=== PATIENT | male | born 1980 | race Caucasian/White ===

== ENCOUNTER 2016-04-26 12:13 | Emergency (ER) | payer OTHER ==
[~2016-04-26] VITALS: Ht 172.7 cm; Wt 104.3 kg
[~2016-04-26 12:13] MED LIST: PERCOCET 325 MG1 TA2 PO
--- NOTE | 2016-04-26 12:58 | ED GENERAL ADULT ---
History of Present Illness General Chief Complaint: Abdominal Pain/Flank Pain Stated Complaint: ?CONSTIPATION Source: patient Exam Limitations: no limitations Vital Signs & Intake/Output Vital Signs & Intake/Output Vital Signs Date Time Temp Pulse Resp B/P Pulse O2 O2 Flow FiO2 Ox Delivery Rate 04/26 1448 101.2 80 20 156/73 95 Room Air 04/26 1215 96.6 104 20 134/96 100 Room Air Allergies Coded Allergies: NO KNOWN ALLERGIES (08/14/13) Reconcile Medications Ondansetron (Zofran Odt) 4 MG TAB.RAPDIS 1 TAB SL TID nausea Triage Note: PT TO ED C/O URI S/S SINCE TUESDAY. ALSO C/O NOT BEING ABLE TO KEEP LIQUIDS DOWN, VOMITS AFTER DRINKING. AFEBRILE. STATES UNABLE TO URINATE SINCE TUESDAY. Triage Nurses Notes Reviewed? yes Onset: Abrupt Duration: day(s): (4), constant, continues in ED Timing: recent history Injury Environment: home Severity: moderate, severe No Modifying Factors: none HPI: 35-year-old male comes into emergency room for further evaluation of multiple complaints. Patient reports that he has been sick for the past 4 days. She has had a runny nose congestion coughing body aches sore throat. Patient reports that he is also had decrease in bowel movements as well as vomiting and has not been able to keep any liquids down. Diffuse body aches and fevers and chills. Nothing seems to make the symptoms better or worse. Denies any other associated symptoms at this time. Patient comes into the emergency room for further evaluation due to persistent symptoms. (ALESSIO TROY) Past History Travel History Traveled to [place] past 21 day No Medical History Any Pertinent Medical History? none History of MRSA: No History of VRE: No History of CDIFF: No Pneumonia Vaccine: 09/27/13 Surgical History Surgical History: non-contributory Psychosocial History Who do you live with Sister Services at Home None What is your primary language Serbian Tobacco Use: Current Daily Use Daily Tobacco Use Amount/Type: => 5 Cigarettes daily ETOH Use: denies use Illicit Drug Use: denies illicit drug use Family History Family History, If Any: MOTHER FH: diabetes mellitus Hx Contributory? No (ALESSIO TROY) Review of Systems Review of Systems Constitutional: Reports: see HPI. EENTM: Reports: see HPI. Respiratory: Reports: see HPI. Cardiovascular: Reports: no symptoms. GI: Reports: no symptoms. Genitourinary: Reports: no symptoms. Musculoskeletal: Reports: no symptoms. Skin: Reports: no symptoms. Neurological/Psychological: Reports: no symptoms. Hematologic/Endocrine: Reports: no symptoms. Immunologic/Allergic: Reports: no symptoms. All Other Systems: Reviewed and Negative (ALESSIO TROY) Physical Exam Physical Exam General Appearance: well developed/nourished, no apparent distress, alert, awake Head: atraumatic, normal appearance Eyes: Bilateral: normal appearance, EOMI. Ears, Nose, Throat: normal pharynx, normal ENT inspection Neck: normal inspection, full range of motion Respiratory: normal breath sounds, no respiratory distress Cardiovascular: regular rate/rhythm Gastrointestinal: soft, non-tender Back: normal inspection Extremities: normal inspection, normal range of motion Neurologic/Psych: awake, alert, oriented x 3, normal gait, normal mood/affect Skin: intact, normal color Core Measures ACS in differential dx? No CVA/TIA Diagnosis: No Severe Sepsis Present: No Septic Shock Present: No (ALESSIO TROY) Progress Differential Diagnoses I considered the following diagnoses in my evaluation of the patient: Influenza , gastroenteritis, sinusitis, strep throat, sepsis, bronchitis, pneumonia, Plan of Care: Orders Procedure Date/time Status THROAT CULTURE W/QUICK STREP 04/26 1327 Active RAPID VIRAL INFLUENZA A 04/26 1256 Complete LIPASE 04/26 1256 Complete COMPREHENSIVE METABOLIC PANEL 04/26 1256 Complete CBC WITHOUT DIFFERENTIAL 04/26 1256 Complete AMYLASE 04/26 1256 Complete VIRAL CULTURE 04/26 1220 Active Laboratory Tests 04/26/16 1330: Anion Gap 14, Estimated GFR > 60, BUN/Creatinine Ratio 15.8, Glucose 115 H, Calcium 9.7, Total Bilirubin 1.0, AST 58, ALT 94 H, Alkaline Phosphatase 62, Total Protein 8.5 H, Albumin 5.1 H, Globulin 3.4, Albumin/Globulin Ratio 1.5, Amylase 42, Lipase 62, CBC w Diff NO MAN DIFF REQ, RBC 5.31, MCV 87.1, MCH 30.4, RDW 12.4, MPV 8.5, Gran % 82.9 H, Lymphocytes % 8.6 L, Monocytes % 8.0, Eosinophils % 0.1, Basophils % 0.4, Absolute Granulocytes 7.8 H, Absolute Lymphocytes 0.8 L, Absolute Monocytes 0.7 H, Absolute Eosinophils 0, Absolute Basophils 0, PUBS MCHC 34.9 04/26/16 1257: Urine Color Cancelled, Urine Clarity Cancelled, Urine pH Cancelled, Ur Specific [place] Cancelled, Urine Protein Cancelled, Urine Ketones Cancelled, Urine Nitrite Cancelled, Urine Bilirubin Cancelled, Urine Urobilinogen Cancelled, Ur Leukocyte Esterase Cancelled, Ur Microscopic Cancelled, Urine Hemoglobin Cancelled, Urine Glucose Cancelled 04/26/16 1220: Virus Culture Pending Microbiology 04/26 1320 NASOPHARYN: Influenza Virus A & B Rapid Smear - COMP INFLUENZA TYPE B Diagnostic Imaging: Viewed by Me: Radiology Read. Discussed w/RAD: Radiology Read. Radiology Impression: EXAM TYPE: RAD - [id number] VIEWS EXAMINATION: XR ABDOMEN MULTIPLE VIEWS CLINICAL INDICATION: Constipation COMPARISON: None TECHNIQUE: AP upright and supine radiographs of the abdomen and pelvis FINDINGS: No bowel dilatation to suggest obstruction. No free intraperitoneal air. IMPRESSION: Unremarkable bowel gas pattern. Initial ED EKG: none (ALESSIO TROY) Departure Departure Disposition: HOME OR SELF CARE Condition: Stable Clinical Impression Primary Impression: Influenza B Referrals: PATIENT HAS NO PRIMARY CARE DR (PCP/Family) Additional Instructions: Rest. Drink plenty of fluids. Motrin Tylenol at home. Take Zofran ODT as prescribed. Return if any other concerns worsening symptoms. Please go over all results of today's visit with your primary care doctor. Contact your primary care doctor to let them know you were here in the emergency room. There may be nonspecific findings which may not be related to your visit today here in the emergency room but may require further evaluation and chronic monitoring by your primary care doctor. If you had a laceration today the chance of foreign body always remains. You should follow-up with your primary care doctor for recheck in 3-5 days for a wound check. If you had an x-ray done there is a chance that a fracture could have been missed on initial read and you should follow-up with your primary care doctor for repeat x-rays if symptoms persist. If your blood pressure was elevated here in the emergency room please have rechecked by her primary care doctor within the next 48 hours by your primary care doctor. If you were prescribed a narcotic here in the emergency room or any type of controlled substances you're not allowed to drive while taking this medication or operate any type of heavy machinery. Narcotics can make you feel lightheaded dizziness nausea and can cause constipation. You may need to grain picker a stool softener. Thank you for choosing [facility] emergency room. Please return to the emergency room immediately if you have any other concerns worsening of symptoms. Departure Forms: Customer Survey General Discharge Information Prescriptions: Current Visit Scripts Ondansetron (Zofran Odt) 1 TAB SL TID #10 TAB Comments 04/26/2016 2:51:01 PM Patient clinically looks well. Feels much better after IV medications. Positive flu swab. Return if any concerns worsening symptoms. too late to start on Tamiflu. (ALESSIO TROY) PA/CIRCUS SUPERVISOR Co-Sign Statement Statement: ED Attending supervision documentation- [] I saw and evaluated the patient. I have also reviewed all the pertinent lab results and diagnostic results. I agree with the findings and the plan of care as documented in the PA's/CIRCUS SUPERVISOR's documentation. [x] I have reviewed the ED Record and agree with the PA's/CIRCUS SUPERVISOR's documentation. [] Additions or exceptions (if any) to the PAs/CIRCUS SUPERVISOR's note and plan are summarized below: [] (BRUNO SANCHEZ DO) Critical Care Note Critical Care Note Critical Care Time: non-applicable (ALESSIO TROY)
[2016-04-26 13:40] LABS: ABSOLUTE BASOPHIL COUNT 0 /CUMM (0.0-0.2); ABSOLUTE EOSINOPHIL COUNT 0 /CUMM (0.0-0.7); ABSOLUTE GRANULOCYTE CT 7.8 /CUMM (1.4-6.5); ABSOLUTE LYMPH COUNT 0.8 /CUMM (1.2-3.4); ABSOLUTE MONOCYTE COUNT 0.7 /CUMM (0.10-0.60); BASOPHIL % 0.4 % (0.0-2.0); EOSINOPHIL % 0.1 % (0-5); GRANULOCYTE % 82.9 % (42.2-75.2); HEMATOCRIT 46.2 % (42-52); MEAN CORPUSCULAR HGB 30.4 PG (27.0-31.0); MEAN CORPUSCULAR HGB CONC 34.9 G/DL (33.0-37.0); MEAN CORPUSCULAR VOLUME 87.1 FL (80.0-94.0); MEAN PLATELET VOLUME 8.5 FL (7.4-10.4); PLATELET COUNT 206 /CUMM (130-400); RBC DISTRIBUTION WIDTH 12.4 % (11.5-14.5); RED BLOOD CELL CT 5.31 /CUMM (4.70-6.10); WHITE BLOOD CELL COUNT 9.4 /CUMM (4.8-10.8)
--- NOTE | 2016-04-26 13:51 | RADIOLOGY REPORT ---
EXAMINATION: XR ABDOMEN MULTIPLE VIEWS CLINICAL INDICATION: Constipation COMPARISON: None TECHNIQUE: AP upright and supine radiographs of the abdomen and pelvis FINDINGS: No bowel dilatation to suggest obstruction. No free intraperitoneal air. IMPRESSION: Unremarkable bowel gas pattern.
[2016-04-26] MEDS ORDERED: ZOFRAN ODT4 M1 SL (14:18)
[2016-04-26 14:48] VITALS: BP 156/73
== END 2016-04-26 14:57 ==
LOC: ERH 12:13
PROVIDERS: Physician Assistant Medical
DX: J10.1 Influenza due to other identified influenza virus with other respiratory manifestations (principal); F17.210 Nicotine dependence, cigarettes, uncomplicated
CPT/HCPCS: 74020; 87804; 87804-59; 96374; 96375; J1885; J2405